=== PATIENT | male | born 1970 | race Two or more races ===

== ENCOUNTER 2024-07-29 13:46 | Emergency (ER) | payer BC, SELFPAY ==
[2024-07-29 13:59] VITALS: BP 118/86
[2024-07-29 14:24] LABS: % Basophils 0.7 % (0-2); % Eosinophils 2.2 % (0-6); % Immature Granulocytes 0.2 % (0-0.5); % Lymphocytes 29.6 % (20.5-51.1); % Monocytes 7.9 % (1.7-9.3); % Neutrophils 59.4 % (42.2-75.2); Absolute Eosinophils 0.1 10^3/uL (0-0.7); Absolute Lymphocytes 1.7 10^3/uL (1.2-3.4); Absolute Monocytes 0.5 10^3/uL (0.1-0.6); Absolute Neutrophils 3.5 10^3/uL (1.4-6.5); Hematocrit 43.9 % (39.0-52.0); Hemoglobin 15.2 g/dL (13.0-18.0); Mean Corp Hgb Conc. 34.6 g/dL (33.0-37.0); Mean Corpuscular Hgb 30.7 pg (27.0-31.0); Mean Corpuscular Volume 88.7 fL (80.0-94.0); Mean Platelet Volume 10.3 fL (7.4-10.4); Nucleated Red Blood Cells % 0 % (-); Platelet Count 213 10^3/uL (130-400); Red Blood Cell Count 4.95 10^6/uL (4.70-6.10); Red Cell Dist. Width 12.7 % (11.5-14.5); White Blood Cell Count 5.8 10^3/uL (4.8-10.8)
[2024-07-29 14:50] LABS: ALT (SGPT) 46 U/L (0-50); AST (SGOT) 29 U/L (17-59); Alkaline Phosphatase 45 U/L (38-126); Blood Urea Nitrogen 14 mg/dl (9-20); Carbon Dioxide 27 mmol/L (22-30); Chloride 107 mmol/L (98-107); Glucose 147 mg/dl (70-99); Potassium 4.6 mmol/L (3.5-5.1); Sodium 141 mmol/L (135-145); Total Bilirubin 0.9 mg/dl (0.2-1.3); Total Protein 7.4 g/dl (6.3-8.2); eGFR > 60.00
[2024-07-29 14:59] LABS: Troponin I < 0.012 ng/ml
--- NOTE | 2024-07-29 15:42 | ED.GENMED ---
History of Present Illness
General
Chief Complaint: Dizziness
Source: patient
Exam Limitations: none
Time Seen by Provider: 07/29/24 15:09
Nursing documentation reviewed up to this point in time: agreed with
History of Present Illness
History of Present Illness:
Patient is a 54-year-old male with past medical history of CAD, NIDDM-hypercholesteremia presents to the ER for evaluation. Patient reports the past several weeks he has been short of breath worse with exertion. He also has had a lot of burping
and belching. He does mention that he recently switched from Ozempic to Mounjaro 1-1/2 months ago. He came here today because for the past 2 days however he has felt lightheaded and dizzy and numbness in the back of the head with a little bit of
nausea. He denies room spinning sensation but simply feels dizzy. He does note that the dizziness has started since he started trazodone about a week ago for sleep.
He denies any recent trauma. He is not on blood thinners. In addition he has had some chest discomfort. Patient last travel to [facility] about 1 month ago denies any lower extremity pain or swelling. He is followed by cardiology at [place].
Review of Systems
Review of Systems
Allergies reviewed?: Yes
All Other Systems: ROS reviewed and negative except as documented in HPI and ROS
Constitutional: Reports no symptoms; Denies fever, fatigue or chills
EENT: Reports other ('ear popping' )
Respiratory: Reports trouble breathing
Cardiac: Reports chest pain
ABD/GI: Reports nausea; Denies vomiting
: Reports no symptoms
Musculoskeletal: Reports no symptoms
Skin: Reports no symptoms
Neurological: Reports no symptoms
Psychiatric: Reports no symptoms
Phy Exam
General Physical Exam
General Presentation: no apparent distress
General age: appears stated age
General Skin: warm and dry
General Habitus: normal
General Mental: alert
General Hydration: appears well hydrated
Cardiovascular Exam
Cardiovascular Exam: regular rate/rhythm, no murmur and normal peripheral pulses
Pulmonary Exam
Pulmonary Exam: lungs clear and no respiratory distress
Neurological Exam
Neurological Exam: alert, oriented x3, no motor deficits and no sensory deficits
[place] Coma Scale
Eye Opening: Spontaneous
Verbal Response: Oriented
Motor Response: Obeys Commands
GCS Total Score: 15
Cerebellar
Cerebellar Function: normal finger to nose
Musculoskeletal Exam
Musculoskeletal Exam: full ROM
Skin Exam
Skin Exam: normal color and warm/dry
Psychiatric Exam
Psychiatric Exam: normal mood/affect
Course
Orders/Labs/Results
Orders:
Orders
07/29/24 13:50
ECG [Electrocardiogram (*1)] Urgent
Reason for Study: Chest Pain
EKG- Treatment ONCE
07/29/24 14:03
Cardiac Monitoring- Treatment ONCE
IV Insert/Care/Rem.- Treatment PRN
O2 Therapy [RESP] Urgent
Titrate/Wean O2 to maintain O2 sat greater than (%): 90
Special Instructions: Maintain sats >/=90%
Pulse Ox/spot Check [RESP] Urgent
Quantity: 1
Special Instructions: ON ROOM AIR
07/29/24 14:12
Complete Blood Count/With Diff Urgent
Comprehensive Metabolic Panel Urgent
Troponin I Urgent
07/29/24 15:39
CT Head W/o Iv Contrast Urgent
Comment:
Reason For Exam: headache/dizziness
07/29/24 15:58
DDimer [D-Dimer] Urgent
Abnormal Lab Results
07/29/24
14:12
Creatinine 0.5 L mg/dL
(0.7-1.3)
Glucose 147 H mg/dl
(70-99)
07/29/24 14:12
07/29/24 14:12
Vital Signs
Initial and Last Documented VS:
Initial Vital Signs
Temp Pulse Resp BP Pulse Ox
98.3 F 72 22 118/86 98
07/29/24 13:59 07/29/24 13:59 07/29/24 13:59 07/29/24 13:59 07/29/24 13:59
Last Documented Vital Signs
Temp Pulse Resp BP Pulse Ox
98.3 F 65 12 118/86 97
07/29/24 13:59 07/29/24 18:02 07/29/24 18:02 07/29/24 13:59 07/29/24 16:13
MDM/Problems Addressed
MDM/Problems Addressed:
As documented patient is a 54-year-old male with history of CAD followed by [place] cardiology presented with symptoms of intermittent shortness of breath with exertion intermittent chest pain dizziness. In addition patient has had some gas
issues burping etc. after switching from Ozempic to Mounjaro. Patient presents awake alert no acute distress lungs are clear nontachycardic nonhypoxic normal EKG normal troponin normal D-dimer. CT head negative. Patient feels that the dizziness
started after taking trazodone. Patient does not want an x-ray and wants to go home.lungs care clear.
His workup was unremarkable here in the ER no acute concerns for ACS negative negative D-dimer no concerning signs of PE GI issues with belching likely related to switching Ozempic to Mounjaro and intermittent dizziness possible related to recently
starting trazodone.
I did review with patient that he should follow-up with his clip coater likely will need stress test and echo. In addition he is going to stop taking trazodone and follow-up with his family doctor for further recommendations for sleep and will
have him also d/c his GI issues at this time with Dr. Krueger.
Chronic conditions affecting care:
CAD niddm, high cholesterol
*Critical Care Note
Total Time (30-74mins, 75-104mins- exclusive of procedures): Not Applicable
ED Attending Note
-
Portions of this chart may have been created with voice recognition software.� Occasional wrong word or��sound alike� substitutions may have occurred due to the inherent limitations of voice recognition software.
Discharge Plan
Departure
Patient Disposition: Home (Routine Discharge)
Date of Disposition: 07/29/24
Time of Disposition: 18:12
Patient with high blood pressure during this ER visit?: Yes
Condition: Fair
Covid-19: Not Applicable
Discharge Problem:
Dyspnea, Chest pain, Dizziness
Instructions: Shortness of breath in adults - ED discharge instructions, Chest Pain NON-[facility] [employer] Follow Up, Dizziness, BLOOD PRESSURE
Prescriptions:
No Action
Actos:
liraglutide [Victoza 2-Babatunde] 0.6 MG/0.1 ML pen injector
SQ
Rosuvastatin Calcium
Vascepa
amoxicillin-pot clavulanate 1 TABLET tablet
1 tab PO Q12 Qty: 20 0RF
Referrals:
Jon Casanova DO [Family Provider, Family Practice]
Activity Restrictions/Additional Instructions:
As discussed please follow-up with your clip coater for further reevaluation of shortness of breath and chest pain you likely will need a stress test and/or an echocardiogram. Please follow the family doctor for further evaluation of other
symptoms including dizziness. Stop trazodone. Please discuss your GI issues with your family doctor as well. Return if any worsening of symptoms.
Interventions
Interventions:
*Risk Screen - Suicide Last Done: 07/29/24 13:59
*General Assessment Last Done: 07/29/24 13:59
*Neglect/Abuse Screening Last Done: 07/29/24 13:59
*ED- Fall Risk Assessment Last Done: 07/29/24 16:01
*ED COVID-19 Vaccine History Last Done: 07/29/24 16:01
ED- Neurological Assessment Last Done: 07/29/24 16:14
ED- Cardiac Assessment Last Done: 07/29/24 16:14
Discharge Date and Time
Print Language: SERBIAN
[2024-07-29 15:55] VITALS: BMI 36.3
[2024-07-29 16:22] LABS: D-Dimer < 0.27 ug/mlFEU (0.00-0.50)
== END 2024-07-29 18:36 | disposition home or self-care (01) ==
LOC: EMR 13:46
PROVIDERS: Emergency Medicine; Nurse Practitioner; EMERGENCY PHYSICIAN Student in an Organized Health Care Education/Training Program; FAMILY PHYSICIAN Family Medicine
DX: R06.00 Dyspnea, unspecified (principal); R42 Dizziness and giddiness; R07.89 Other chest pain; R20.0 Anesthesia of skin; R03.0 Elevated blood-pressure reading, without diagnosis of hypertension; I25.10 Atherosclerotic heart disease of native coronary artery without angina pectoris; E78.00 Pure hypercholesterolemia, unspecified; E11.9 Type 2 diabetes mellitus without complications; Z79.84 Long term (current) use of oral hypoglycemic drugs
CPT/HCPCS: 99285; 94760; 70450; 80053; 84484; 85025; 85379; 93005